=== PATIENT | male | born 1975 | race Caucasian/White ===

== ENCOUNTER 2018-10-03 13:02 | Emergency (ER) | payer OTHER ==
[~2018-10-03] VITALS: Ht 188 cm; Wt 136.1 kg
[2018-10-03 15:02] LABS: ABSOLUTE EOSINOPHILS 0.2 thou/uL (0.0-0.7); ABSOLUTE LYMPHOCYTES 2.4 thou/uL (0.8-5.3); ABSOLUTE MONOCYTES 0.5 thou/uL (0.0-1.2); ABSOLUTE NEUTROPHILS 3.5 thou/uL (1.6-8.1); BASOPHILS 0.3 %; EOSINOPHILS 2.6 %; HEMATOCRIT 43.8 % (42.0-52.0); HEMOGLOBIN 14.8 gm/dL (14.0-18.0); LYMPHOCYTES 37.1 %; MCH 30.4 pg (26.0-34.0); MCHC 33.8 g/dL (28.0-37.0); MONOCYTES 7.4 %; MPV 7.8 fl. (7.2-11.1); NUCLEATED RBCS 0 /100WBC; PLATELET COUNT* 219 thou/uL (150-400); POLYS 52.6 %; RBC 4.87 mil/uL (4.50-6.00); RDW-CV 13.6 % (10.5-14.5); WBC 6.6 thou/uL (4.0-11.0)
[2018-10-03 15:22] LABS: ALKALINE PHOSPHATASE 70 U/L (46-116); ANION GAP 6 mmol/L (7-16); BUN 14 mg/dL (7-18); CALCIUM 8.8 mg/dL (8.5-10.1); CHLORIDE 106 mmol/L (98-107); CO2 26 mmol/L (21-32); CREATININE 0.9 mg/dL (0.6-1.3); GLUCOSE 83 mg/dL (70-99); NT-PRO BRAIN NAT PEPTIDE 14 pg/mL (<300); POTASSIUM 4.3 mmol/L (3.5-5.1); SGOT 20 U/L (15-37); SGPT 56 U/L (30-65); SODIUM 138 mmol/L (136-145); TOTAL BILIRUBIN 0.5 mg/dL (<0.1-1.0); TOTAL PROTEIN 6.7 g/dL (6.4-8.2); TROPONIN-I LEVEL <0.06 ng/mL (<0.06)
[2018-10-03 15:22] LABS: URINE BILIRUBIN NEGATIVE (Negative); URINE BLOOD NEGATIVE (Negative); URINE CLARITY CLEAR; URINE COLOR YELLOW; URINE GLUCOSE-RANDOM NEGATIVE (Negative); URINE KETONES NEGATIVE (Negative); URINE LEUKOCYTES-REFLEX NEGATIVE (Negative); URINE NITRITE-REFLEX NEGATIVE (Negative); URINE PROTEIN NEGATIVE (Negative); URINE SPECIFIC GRAVITY 1.025 (1.005-1.030); URINE UROBILINOGEN 0.2 E.U./dl (0.2-1.0)
[2018-10-03] MEDS ORDERED: PREDNISONE 10 M10 M1 PO (16:26)
[2018-10-03] MEDS ORDERED: ZESTRIL10 MG PO (16:26)
[2018-10-03] MEDS ORDERED: LASIX 20 MG TAB20 MG PO (16:26)
[2018-10-03 16:49] VITALS: BP 123/83
--- NOTE | 2018-10-04 15:29 | EKG ---
[place] [address] ELECTROCARDIOGRAM REPORT Name: YUNIER STARKEY Room: [facility]#: [id number] Admission: 10/03/18 Attend Phys: Discharge: 10/03/18 Date of : 75 Report #: [id number] THIS REPORT FOR: //name// [facility] Test Date: 2018-10-03 Test Time: 14:44:13 Pat Name: YUNIER STARKEY Department: Room: Gender: M Bottom Wheeler: Ela DONIS : 1975 Requested By: Alise Callahan Order Number: [id number] MD: Jimy Erickson Measurements Intervals [place] Rate: 73 P: 46 WI: 143 QRS: 26 QRSD: 102 T: 42 QT: 389 QTc: 429 Interpretive Statements Sinus rhythm Abnormal R-wave progression, early transition No previous ECG available for comparison Electronically Signed On 10-04-2018 15:29:45 PROPOSAL EDITOR by Jimy Erickson [email or web address] <ELECTRONICALLY SIGNED> By: Jimy Erickson MD, [facility] 10/04/18 1529 1444 1444 Jimy Erickson MD, FACC /EPI
== END 2018-10-03 16:50 | disposition home or self-care (01) ==
LOC: M.ERS 13:02
PROVIDERS: Nurse Practitioner
DX: I10 Essential (primary) hypertension (principal); R60.0 Localized edema; F17.210 Nicotine dependence, cigarettes, uncomplicated